=== PATIENT | female | born 1985 | race Asian ===

== ENCOUNTER 2016-04-24 06:20 | Inpatient (IN) | payer BC, MEDICAID, OTHER ==
[~2016-04-24] VITALS: Ht 154.9 cm; Wt 68.0 kg
[~2016-04-24 06:20] MED LIST: MOTRIN800 MG PO; PRENATAL VITAMI1 T10 PO
[2016-04-24] MEDS ORDERED: LACTATED RINGERS 1,000 ML IV SCH (06:58)
[2016-04-24] MEDS ORDERED: NALBUPHINE HYDROCHLORIDE 10 MG/ML VIAL IVP PRN (07:00)
[2016-04-24] MEDS ORDERED: OXYTOCIN 20 UNITS/LR PREMIX 1,000 ML IV SCH (07:00)
[2016-04-24] MEDS ORDERED: AMPICILLIN 2,000 MG in NACL 0.9% MINI-BAG PLUS 100 ML IV SCH (07:00)
[2016-04-24] MEDS ORDERED: OXYTOCIN 10 UNITS/ML VIAL IM SCH (07:00)
[2016-04-24] MEDS ORDERED: PROMETHAZINE 25 MG/ML VIAL IVP PRN (07:00)
[2016-04-24] MEDS ORDERED: AMPICILLIN 2,000 MG VIAL ONE ×3 (07:12→23:56)
[2016-04-24] MEDS ORDERED: AMPICILLIN 1,000 MG in NACL 0.9% MINI-BAG PLUS 50 ML IV SCH (08:00)
[2016-04-24] MEDS ORDERED: ROPIVACAINE 0.2%/NS PREMIX 250 ML EPI ONE (08:09)
--- NOTE | 2016-04-24 08:14 | NUR ---
PATIENT HAS BEEN SCREENED AND CATEGORIZED LOW NUTRITION RISK. PATIENT WILL BE SEEN WITHIN 7 DAYS OF ADMISSION. 04/30/[address]
[2016-04-24] MEDS ORDERED: fentaNYL 0.05 MG/ML VIAL ONE (09:48)
[2016-04-24] MEDS ORDERED: OXYTOCIN 20 UNITS/LR PREMIX 1,000 ML IV ONE (10:12)
[2016-04-24] MEDS ORDERED: OXYTOCIN 10 UNITS/ML VIAL ONE (10:13)
[2016-04-24] MEDS ORDERED: ACETAMINOPHEN 650 MG/20.3 ML UDC PO PRN (19:30)
[2016-04-24] MEDS ORDERED: ACETAMINOPHEN 325 MG TAB ONE (19:36)
[2016-04-24] MEDS ORDERED: AMPICILLIN 2,000 MG in NACL 0.9% 100 ML IV SCH (20:00)
[2016-04-24] MEDS ORDERED: NALOXONE 0.4 MG/ML VIAL ONE (21:41)
[2016-04-24] MEDS ORDERED: METHYLERGONOVINE 0.2 MG/ML AMP IM PRN (22:50)
[2016-04-24] MEDS ORDERED: oxyCODONE/APAP 5/325 MG 1 TAB TAB PO PRN (22:50)
[2016-04-24] MEDS ORDERED: TEMAZEPAM 15 MG CAP PO PRN (22:50)
[2016-04-24] MEDS ORDERED: MEASLES, MUMPS, AND RUBELLA 1 VIAL SQVAC PRN (22:50)
[2016-04-24] MEDS ORDERED: WITCH HAZEL 40 PAD PACKAGE TP PRN (22:50)
[2016-04-24] MEDS ORDERED: IBUPROFEN 800 MG TAB PO PRN (22:50)
[2016-04-24] MEDS ORDERED: OXYTOCIN 10 UNITS/ML VIAL IM PRN (22:50)
[2016-04-24] MEDS ORDERED: HYDROcodone/APAP 5/325 MG 1 TAB TAB PO PRN (22:50)
[2016-04-25] MEDS ORDERED: INFLUENZA VIRUS VACCINE QUAD 0.5 ML SYR IMVAC SCH (11:00)
[2016-04-25] MEDS ORDERED: DOCUSATE SOD/SENNA 50/8.6 MG 1 TAB PO SCH ×2 (21:00)
== END 2016-04-25 21:30 | disposition home or self-care (01) | DRG 775 ==
LOC: MLD 06:20 → MFCC 04-25 03:04
PROVIDERS: ADMIT Obstetrics & Gynecology; ATTEND Obstetrics & Gynecology
PROC: 0KQM0ZZ Repair Perineum Muscle, Open Approach (ICD-10-PCS; principal; 2016-04-24)
PROC: 10E0XZZ Delivery of Products of Conception, External Approach (ICD-10-PCS; 2016-04-24)
PROC: 3E0234Z Introduction of Serum, Toxoid and Vaccine into Muscle, Percutaneous Approach (ICD-10-PCS; 2016-04-24)
DX: O69.81X0 Labor and delivery complicated by cord around neck, without compression, not applicable or unspecified (principal); O70.1 Second degree perineal laceration during delivery; Z3A.39 39 weeks gestation of pregnancy; Z37.0 Single live birth; Z23 Encounter for immunization

== ENCOUNTER 2017-06-15 05:45 | Inpatient (IN) | payer OTHER ==
[~2017-06-15] VITALS: Ht 154.9 cm; Wt 75.3 kg
[~2017-06-15 05:45] MED LIST changes: +IBUP-974 PO; -MOTRIN800 MG PO; +PREN-385 PO; -PRENATAL VITAMI1 T10 PO
[2017-06-15] MEDS ORDERED: LACTATED RINGERS 1,000 ML IV SCH (06:18)
[2017-06-15] MEDS ORDERED: OXYTOCIN 10 UNITS/ML VIAL IM SCH (06:20)
[2017-06-15] MEDS ORDERED: NALBUPHINE HYDROCHLORIDE 10 MG/ML VIAL IVP PRN (06:20)
[2017-06-15] MEDS ORDERED: PROMETHAZINE 25 MG/ML VIAL IVP PRN (06:20)
[2017-06-15] MEDS ORDERED: AMPICILLIN 2,000 MG in NACL 0.9% MINI-BAG PLUS 100 ML IV SCH (06:20)
[2017-06-15] MEDS ORDERED: LACTATED RINGERS 500 ML IV ONE (06:20)
[2017-06-15] MEDS ORDERED: PROMETHAZINE 25 MG/ML VIAL ONE (06:25)
[2017-06-15] MEDS ORDERED: NALBUPHINE HYDROCHLORIDE 10 MG/ML VIAL ONE (06:25)
[2017-06-15] MEDS ORDERED: AMPICILLIN 2,000 MG VIAL ONE (06:25)
[2017-06-15 06:41] LABS: BASOPHILS # (AUTO) 0.1 K/uL (0.00-0.22); BASOPHILS % (AUTO) 0.7 % (0.0-2.0); EOSINOPHILS # (AUTO) 0.1 K/uL (0-0.4); EOSINOPHILS % (AUTO) 0.7 % (0.0-4.0); HEMOGLOBIN 13.9 g/dL (12.0-16.0); LYMPHOCYTES # (AUTO) 1.4 K/uL (2.5-16.5); LYMPHOCYTES % (AUTO) 15.4 % (20.5-51.1); MEAN CORPUSCULAR HEMOGLOBIN 28 pg (27-31); MEAN CORPUSCULAR HGB CONC 33 g/dL (33-37); MONOCYTES # (AUTO) 0.4 K/uL (0.8-1.0); MONOCYTES % (AUTO) 4.4 % (1.7-9.3); NEUTROPHILS # (AUTO) 7.3 K/uL (1.8-7.7); NEUTROPHILS % (AUTO) 78.8 % (42.2-75.2); PLATELET COUNT (AUTO) 187 K/uL (140-450); RED BLOOD CELL COUNT(AUTO) 4.89 MIL/uL (4.20-5.40); RED CELL DISTRIBUTION WIDTH 13.9 % (11.6-13.7); WHITE BLOOD COUNT (AUTO) 9.3 K/uL (4.8-10.8)
[2017-06-15 06:42] LABS: BILIRUBIN,URINE NEGATIVE (NEGATIVE); BLOOD, URINE NEGATIVE (NEGATIVE); COLOR,URINE YELLOW (YELLOW); LEUKOCYTE ESTERASE ,URINE NEGATIVE (NEGATIVE); NITRITE, URINE NEGATIVE (NEGATIVE); UGLUCOSE NEGATIVE (NEGATIVE)
[2017-06-15] MEDS ORDERED: PREN-380 PO (07:18)
[2017-06-15] MEDS ORDERED: OXYTOCIN 10 UNITS/ML VIAL ONE (07:34)
[2017-06-15] MEDS ORDERED: LIDOCAINE 2% 1000 MG/50 ML VIAL INJ ONE (07:35)
[2017-06-15 07:36] VITALS: BP 121/65
[2017-06-15 07:37] LABS: APPEARANCE,URINE CLEAR (CLEAR)
[2017-06-15] MEDS ORDERED: HYDROcodone/APAP 5/325 MG 1 TAB TAB PO PRN (07:50)
[2017-06-15] MEDS ORDERED: IBUPROFEN 800 MG TAB PO PRN (07:50)
[2017-06-15] MEDS ORDERED: METHYLERGONOVINE 0.2 MG/ML AMP IM PRN (07:50)
[2017-06-15] MEDS ORDERED: oxyCODONE/APAP 5/325 MG 1 TAB TAB PO PRN (07:50)
[2017-06-15] MEDS ORDERED: MEASLES, MUMPS, AND RUBELLA 1 VIAL SQVAC PRN (07:50)
[2017-06-15] MEDS ORDERED: BENZOCAINE/MENTHOL 20%-0.5% 60 GM CAN TP PRN (07:50)
[2017-06-15] MEDS ORDERED: TEMAZEPAM 15 MG CAP PO PRN (07:50)
[2017-06-15] MEDS ORDERED: OXYTOCIN 10 UNITS/ML VIAL IM PRN (07:50)
[2017-06-15] MEDS ORDERED: AMPICILLIN 1,000 MG in NACL 0.9% MINI-BAG PLUS 50 ML IV SCH (08:00)
[2017-06-15] MEDS ORDERED: OXYTOCIN 20 UNITS in LACTATED RINGERS 1,000 ML IV SCH (08:06)
--- NOTE | 2017-06-15 10:17 | NUR ---
PATIENT HAS BEEN SCREENED AND CATEGORIZED LOW NUTRITION RISK. PATIENT WILL BE SEEN WITHIN 7 DAYS OF ADMISSION. 06/21/[address]
[2017-06-15] MEDS ORDERED: DOCUSATE SOD/SENNA 50/8.6 MG 1 TAB PO SCH (21:00)
[2017-06-16 07:51] LABS: HEMATOCRIT 38.1 % (36-48); HEMOGLOBIN 12.7 g/dL (12.0-16.0)
[2017-06-17] MEDS ORDERED: IBUP-1842 PO (08:07)
== END 2017-06-17 16:00 | disposition home or self-care (01) | DRG 560 ==
LOC: MFCC 05:45
PROVIDERS: ADMIT Obstetrics & Gynecology; ATTEND Obstetrics & Gynecology
PROC: 10E0XZZ Delivery of Products of Conception, External Approach (ICD-10-PCS; principal; 2017-06-15)
PROC: 10907ZC Drainage of Amniotic Fluid, Therapeutic from Products of Conception, Via Natural or Artificial Opening (ICD-10-PCS; 2017-06-15)
PROC: 0HQ9XZZ Repair Perineum Skin, External Approach (ICD-10-PCS; 2017-06-15)
DX: O77.0 Labor and delivery complicated by meconium in amniotic fluid (principal); O70.0 First degree perineal laceration during delivery; Z37.0 Single live birth; Z3A.39 39 weeks gestation of pregnancy; Z28.21 Immunization not carried out because of patient refusal
CPT/HCPCS: 36415; 59409; 81003; 85018; 85025; 86592; 86886; 86900; 86901; 87653-90; J0290; J2001; J2300; J2550; J2590; J7120